=== PATIENT | male | born 1945 | race Caucasian/White ===

== ENCOUNTER 2018-05-25 18:41 | Observation (INO) | payer MEDICARE, MEDICAID ==
[~2018-05-25] VITALS: Ht 175.3 cm; Wt 80.2 kg
[~2018-05-25 18:41] MED LIST: COLACE 100100 MG/CAP PO; COUMADIN4 MG PO; JANTOVEN3 M1 PO; JANTOVEN4 MG; LIPITOR 40MG TA40 MG PO; MULTIVITAMIN1 CTB PO; NORCO 325 MG-51 TAB PO; PRILOSEC 20MG20 MG PO; PROZAC 20MG20 MG PO; VASOTEC 5MG5 MG/TAB PO
[2018-05-25 19:05] LABS: BASO # 0.1 (0.0-0.2); BASO % 0.6 % (0.0-2.0); EOS # 0.4 (0.0-0.7); EOS % 3.3 % (0-4.0); GRAN # 7.3 (1.4-6.5); GRAN % 66.1 % (42.2-75.2); HEMATOCRIT 40.1 % (42.0-52.0); HEMOGLOBIN 13.7 g/dl (13.5-18.0); LYMPH # 2.2 (1.2-3.4); MEAN CELL VOLUME 88 fl (80.0-100.0); MEAN CORPUSCULAR HEMOGLOBIN 30 pg (27.0-31.0); MEAN CORPUSCULAR HGB CONC 34 g/dl (33.0-37.0); MEAN PLATELET VOLUME 9.5 fl (7.4-10.4); MONO # 1.1 (0.1-0.6); MONO % 9.6 % (1.7-9.3); PLATELET COUNT 300 K/mm3 (130-400); RED BLOOD COUNT 4.55 M/mm3 (4.20-5.60)
[2018-05-25] MEDS ORDERED: MULTI VITAMINS1 TAB PO (19:08)
[2018-05-25 19:11] LABS: INR 2.2 (0.8-3.0); PROTHROMBIN TIME 25.1 SECONDS (9.7-12.8)
[2018-05-25 19:14] LABS: PARTIAL THROMBOPLASTIN TIME 41.5 SECONDS (26.0-37.0)
[2018-05-25 19:16] LABS: ALANINE AMINOTRANSFERASE 34 U/L (21-72); ALBUMIN 3.5 gm/dL (3.5-5.0); ALKALINE PHOSPHATASE 127 U/L (50-136); ANION GAP 11 mmol/L (7-16); AST,SGOT 27 U/L (15-37); BILIRUBIN,TOTAL 0.3 mg/dL (0.0-1.0); BLOOD UREA NITROGEN 11 mg/dL (9-20); CALCIUM 8.6 mg/dL (8.4-10.2); CARBON DIOXIDE 25 mmol/L (22-30); CHLORIDE 102 mmol/L (98-107); GLUCOSE 133 mg/dL (74-106); POTASSIUM 3.4 mmol/L (3.4-5.0); SODIUM 138 mmol/L (137-145); TOTAL PROTEIN 6.6 gm/dL (6.4-8.2)
[2018-05-25 19:43] LABS: TROPONIN-I < 0.012 ng/mL (0.000-0.034)
[2018-05-25 20:29] LABS: COLLECTION METHOD CLEAN CATCH
[2018-05-25 20:44] LABS: MUCOUS Present /lpf; PH 6 (5-8); SQUAMOUS EPITHELIAL None Seen /hpf; URINE APPEARANCE Clear; URINE BACTERIA None Seen /hpf; URINE BILIRUBIN Negative (NEGATIVE); URINE BLOOD 1+ (NEGATIVE); URINE COLOR Yellow; URINE GLUCOSE Negative (NEGATIVE); URINE KETONE Negative (NEGATIVE); URINE LEUKOCYTE ESTERASE 1+ (NEGATIVE); URINE NITRATE Negative (NEGATIVE); URINE PROTEIN(semi-quant) Negative (NEGATIVE)
[2018-05-25] MEDS ORDERED: COUMADIN4 MG PO (21:23)
[2018-05-25] MEDS ORDERED: VASOTEC 5MG5 MG/TAB PO (21:25)
[2018-05-25 21:53] VITALS: BP 123/70; PULSE 96; TEMP 98.6
[2018-05-26 04:22] VITALS: BP 123/72; PULSE 87; TEMP 98.3
[2018-05-26 07:14] VITALS: BP 138/91; PULSE 97; TEMP 98.9
[2018-05-26 12:08] VITALS: BP 139/92; PULSE 80; TEMP 98.7
[2018-05-26 16:05] VITALS: BP 147/86; PULSE 84; TEMP 98.2
[2018-05-26 20:00] VITALS: BP 154/86; PULSE 86; TEMP 96.4
[2018-05-27] VITALS (9 sets, daily range): BP systolic 130–174; BP diastolic 68–96; PULSE 71–108; TEMP 97–98.3
[2018-05-27] MEDS ORDERED: COUMADIN4 MG PO (18:12)
[2018-05-27] MEDS ORDERED: COUMADIN 2MG2 MG/TAB PO (18:54)
== END 2018-05-27 18:59 | disposition home or self-care (01) ==
LOC: COL.ER 18:41 → MEDICAL 20:14
PROVIDERS: Family Medicine
DX: R07.9 Chest pain, unspecified (principal); I11.0 Hypertensive heart disease with heart failure; I50.9 Heart failure, unspecified; Z79.01 Long term (current) use of anticoagulants; E78.5 Hyperlipidemia, unspecified; I69.331 Monoplegia of upper limb following cerebral infarction affecting right dominant side; Z66 Do not resuscitate; K21.9 Gastro-esophageal reflux disease without esophagitis; Z79.899 Other long term (current) drug therapy
CPT/HCPCS: A9502; G0378; J2785

== ENCOUNTER 2024-03-09 20:01 | Inpatient (IN) | payer MEDICARE, MEDICAID ==
[~2024-03-09 20:01] MED LIST changes: +COUMADIN 2MG2 MG/TAB PO; +Iohexol 300 - 100 ML VIAL IV ONE; +MULTI VITAMINS1 TAB PO
== END 2024-03-13 14:00 | DRG 189 ==
LOC: COL.ER 20:01 → MEDICAL 03-10 01:30
PROVIDERS: ADMIT Internal Medicine
DX: J96.01 Acute respiratory failure with hypoxia (principal); G93.41 Metabolic encephalopathy; J44.1 Chronic obstructive pulmonary disease with (acute) exacerbation; J90 Pleural effusion, not elsewhere classified; I69.351 Hemiplegia and hemiparesis following cerebral infarction affecting right dominant side; E11.9 Type 2 diabetes mellitus without complications; K21.9 Gastro-esophageal reflux disease without esophagitis; Z66 Do not resuscitate; E78.5 Hyperlipidemia, unspecified; N40.0 Benign prostatic hyperplasia without lower urinary tract symptoms; I10 Essential (primary) hypertension; R54 Age-related physical debility; Z79.02 Long term (current) use of antithrombotics/antiplatelets; Z79.84 Long term (current) use of oral hypoglycemic drugs; Z79.899 Other long term (current) drug therapy; Z87.891 Personal history of nicotine dependence
CPT/HCPCS: Q9967